=== PATIENT | male | born 1995 | race Caucasian/White ===

== ENCOUNTER 2018-02-08 10:01 | Emergency (ER) | payer SELFPAY ==
[~2018-02-08] VITALS: Ht 175.3 cm; Wt 72.6 kg
[2018-02-08 10:10] VITALS: Ht 175.3 cm; Wt 72.6 kg
[2018-02-08 10:58] LABS: BASOPHIL % 0.4 % (0-2); PLATELET COUNT 298 x10^3mcL (130-400)
[2018-02-08 11:06] LABS: CALCIUM 8.9 mg/dL (8.5-10.1); CARBON DIOXIDE 31.4 mmol/L (21-32); CHLORIDE SERUM 100 mmol/L (98-107); CREATININE SERUM 0.8 mg/dL (0.7-1.3); GFR1 > 60 mL/min; GLUCOSE SERUM 82 mg/dL (74-106); POTASSIUM SERUM 4.2 mmol/L (3.5-5.1); SODIUM SERUM 138 mmol/L (136-145)
[2018-02-08 11:10] LABS: ALBUMIN 4.1 g/dL (3.4-5.0); ALKALINE PHOSPHATASE 59 U/L (46-116); ALT/SGPT 35 U/L (16-63); AMYLASE 53 U/L (25-115); AST/SGOT 23 U/L (15-37); BILIRUBIN TOTAL 0.8 mg/dL (0.20-1.00); LIPASE 119 IU/L (73-393); TOTAL PROTEIN, SERUM 7.4 g/dL (6.4-8.2)
[2018-02-08 12:53] VITALS: BP 131/66
== END 2018-02-08 13:00 | disposition home or self-care (01) ==
LOC: ED 10:01
PROVIDERS: Emergency Medicine
DX: R10.13 Epigastric pain (principal)
CPT/HCPCS: 36415; 83880